=== PATIENT | female | born 1945 | race Caucasian/White ===

== ENCOUNTER 2018-01-20 18:05 | Inpatient (IN) | payer MEDICARE ==
[~2018-01-20] VITALS: Ht 167.6 cm; Wt 73.0 kg
[2018-01-20 18:49] LABS: BASOPHILS % (AUTO) 0.1 % (0-1); EOSINOPHILS # (AUTO) 0.1 X10'3 (0-0.9); EOSINOPHILS % (AUTO) 1.8 % (0-6); HEMATOCRIT 35.7 % (35.0-45.0); LYMPHOCYTES # (AUTO) 2.3 X10'3 (1.1-4.8); LYMPHOCYTES % (AUTO) 30.3 % (21-51); MEAN CORPUSCULAR HEMOGLOBIN 29.9 PG (27.0-31.0); MEAN CORPUSCULAR HGB CONC 33.6 % (33.0-36.5); MEAN PLATELET VOLUME 7.8 FL (7.4-10.4); MONOCYTES # (AUTO) 0.4 X10'3 (0-0.9); MONOCYTES % (AUTO) 5.8 % (2-12); NEUTROPHILS # (AUTO) 4.7 X10'3 (1.8-7.7); PLATELET COUNT 154 X10'3 (140-440); RED BLOOD COUNT 4.01 X10'6 (4.20-5.60); RED CELL DISTRIBUTION WIDTH 13.8 % (11.5-14.5); WHITE BLOOD COUNT 7.6 X10'3 (4.5-11.0)
[2018-01-20 18:58] LABS: PARTIAL THROMBOPLASTIN TIME 32 SECONDS (22-32); PROTHROMBIN TIME 10.8 SECONDS (9.0-12.0)
[2018-01-20 19:04] LABS: ALANINE AMINOTRANSFERASE 28 U/L (12-78); ALBUMIN 3.6 G/DL (3.4-5.0); ALBUMIN/GLOBULIN RATIO 1.1 (1.1-1.5); ALKALINE PHOSPHATASE 56 IU/L (46-116); ANION GAP 9 (8-16); ASPARTATE AMINO TRANSFERASE 18 U/L (10-37); BILIRUBIN,TOTAL 0.5 MG/DL (0.1-1.0); BLOOD UREA NITROGEN 13 MG/DL (7-18); CALCIUM 8.4 MG/DL (8.5-10.1); CHLORIDE 105 MMOL/L (99-107); CREATININE 0.93 MG/DL (0.40-0.90); GLUCOSE 101 MG/DL (70-104); SODIUM 140 MMOL/L (135-145); TOTAL CARBON DIOXIDE 26.5 MMOL/L (24-32); eGFR 59 ML/MIN
[2018-01-20] MEDS ORDERED: HYDR-3965 PO (19:29)
[2018-01-20] MEDS ORDERED: IBUP200C5 PO (19:29)
[2018-01-20] MEDS ORDERED: ondansetron/PF 4mg/2ml inj IV PRN (21:20)
[2018-01-20] MEDS ORDERED: HYDROcodone/acetaminophen 10/325mg tab PO PRN (21:20)
[2018-01-20] MEDS ORDERED: HYDROcodone/acetaminophen 5mg/325mg tablet PO PRN (21:20)
[2018-01-20] MEDS ORDERED: acetaminophen 325mg tablet PO PRN ×2 (21:20)
[2018-01-20] MEDS ORDERED: magnesium hydroxide 30ml (MOM) UD suspension PO PRN (21:20)
[2018-01-20] MEDS ORDERED: enoxaparin 100mg/ml syringe SUBCUT ONE (21:20)
[2018-01-20] MEDS ORDERED: mag hydrox/Alum hydrox/simeth 30ml oral suspension PO PRN (21:20)
[2018-01-21 02:11] VITALS: BP 139/72
[2018-01-21 05:22] LABS: BASOPHILS % (AUTO) 0.6 % (0-1); EOSINOPHILS # (AUTO) 0.2 X10'3 (0-0.9); EOSINOPHILS % (AUTO) 2.3 % (0-6); HEMOGLOBIN 12.3 g/dl (12.0-16.0); LYMPHOCYTES # (AUTO) 2.9 X10'3 (1.1-4.8); LYMPHOCYTES % (AUTO) 43.7 % (21-51); MEAN CORPUSCULAR HEMOGLOBIN 29.8 PG (27.0-31.0); MEAN CORPUSCULAR HGB CONC 33.3 % (33.0-36.5); MEAN CORPUSCULAR VOLUME 89.4 FL (78-98); MEAN PLATELET VOLUME 8.4 FL (7.4-10.4); MONOCYTES # (AUTO) 0.5 X10'3 (0-0.9); MONOCYTES % (AUTO) 7.4 % (2-12); NEUTROPHILS # (AUTO) 3.1 X10'3 (1.8-7.7); PLATELET COUNT 133 X10'3 (140-440); RED BLOOD COUNT 4.13 X10'6 (4.20-5.60); RED CELL DISTRIBUTION WIDTH 13.8 % (11.5-14.5); WHITE BLOOD COUNT 6.7 X10'3 (4.5-11.0)
[2018-01-21 05:39] LABS: ALBUMIN 3.6 G/DL (3.4-5.0); ANION GAP 7 (8-16); BLOOD UREA NITROGEN 12 MG/DL (7-18); BUN/CREATININE RATIO 12.8 (6.6-38.0); CALCIUM 8.6 MG/DL (8.5-10.1); CHLORIDE 106 MMOL/L (99-107); CREATININE 0.94 MG/DL (0.40-0.90); GLUCOSE 91 MG/DL (70-104); POTASSIUM 3.7 MMOL/L (3.5-5.1); SODIUM 140 MMOL/L (135-145); TOTAL CARBON DIOXIDE 26.9 MMOL/L (24-32); eGFR 59 ML/MIN
[2018-01-21 06:00] VITALS: BP 129/63
[2018-01-21] MEDS: enoxaparin 30mg/0.3ml syringe SUBCUT SCH ×2 (07:46→19:43)
[2018-01-21] MEDS: enoxaparin 40mg/0.4ml syringe SUBCUT SCH ×2 (07:46→19:42)
[2018-01-21 11:00] VITALS: BP 105/52
[2018-01-21 15:00] VITALS: BP 107/61
[2018-01-21 19:00] VITALS: BP 123/56
[2018-01-21] MEDS: diatr meglu/diatrizoate 30ml oral sol.-(3 dose) bottle PO SCH (21:04)
[2018-01-21 23:00] VITALS: BP 142/95
[2018-01-22 03:00] VITALS: BP 102/42
[2018-01-22 05:29] LABS: BASOPHILS % (AUTO) 0.5 % (0-1); EOSINOPHILS # (AUTO) 0.2 X10'3 (0-0.9); EOSINOPHILS % (AUTO) 3.7 % (0-6); HEMATOCRIT 36.2 % (35.0-45.0); HEMOGLOBIN 12.1 g/dl (12.0-16.0); LYMPHOCYTES # (AUTO) 2.9 X10'3 (1.1-4.8); LYMPHOCYTES % (AUTO) 45.1 % (21-51); MEAN CORPUSCULAR HEMOGLOBIN 29.9 PG (27.0-31.0); MEAN CORPUSCULAR HGB CONC 33.6 % (33.0-36.5); MEAN PLATELET VOLUME 8.6 FL (7.4-10.4); MONOCYTES # (AUTO) 0.5 X10'3 (0-0.9); MONOCYTES % (AUTO) 8.3 % (2-12); NEUTROPHILS # (AUTO) 2.8 X10'3 (1.8-7.7); NEUTROPHILS % (AUTO) 42.4 % (42-75); PLATELET COUNT 141 X10'3 (140-440); RED BLOOD COUNT 4.07 X10'6 (4.20-5.60); RED CELL DISTRIBUTION WIDTH 13.6 % (11.5-14.5); WHITE BLOOD COUNT 6.5 X10'3 (4.5-11.0)
[2018-01-22 05:41] LABS: ALBUMIN 3.3 G/DL (3.4-5.0); ANION GAP 6 (8-16); BLOOD UREA NITROGEN 17 MG/DL (7-18); BUN/CREATININE RATIO 16.2 (6.6-38.0); CHLORIDE 105 MMOL/L (99-107); CREATININE 1.05 MG/DL (0.40-0.90); GLUCOSE 97 MG/DL (70-104); POTASSIUM 4.2 MMOL/L (3.5-5.1); SODIUM 141 MMOL/L (135-145); eGFR 52 ML/MIN
[2018-01-22 06:00] VITALS: BP 90/37
[2018-01-22] MEDS: diatr meglu/diatrizoate 30ml oral sol.-(3 dose) bottle PO SCH ×2 (07:05→09:37)
[2018-01-22] MEDS: enoxaparin 30mg/0.3ml syringe SUBCUT SCH ×2 (07:07→19:44)
[2018-01-22] MEDS: enoxaparin 40mg/0.4ml syringe SUBCUT SCH ×2 (07:08→19:44)
[2018-01-22] MEDS ORDERED: iohexol 300mg/ml 100ml inj. ONE (09:52)
[2018-01-22] MEDS ORDERED: iohexol 350MG/ML 100ml bottle IV ONE (09:53)
[2018-01-22] MEDS: Potassium Cl inj 20 MEQ in normal saline 1000ml 990 ML IV SCH ×3 (10:45→22:59)
[2018-01-22 11:00] VITALS: BP 134/79
[2018-01-22 15:00] VITALS: BP 112/59
[2018-01-22 19:00] VITALS: BP 107/44
[2018-01-22 23:00] VITALS: BP 151/61
[2018-01-23 03:00] VITALS: BP 124/58
[2018-01-23 05:53] LABS: ALBUMIN 3.1 G/DL (3.4-5.0); ANION GAP 7 (8-16); BLOOD UREA NITROGEN 13 MG/DL (7-18); BUN/CREATININE RATIO 15.3 (6.6-38.0); CALCIUM 8.4 MG/DL (8.5-10.1); CHLORIDE 107 MMOL/L (99-107); CREATININE 0.85 MG/DL (0.40-0.90); GLUCOSE 101 MG/DL (70-104); POTASSIUM 4.3 MMOL/L (3.5-5.1); SODIUM 139 MMOL/L (135-145); TOTAL CARBON DIOXIDE 25.4 MMOL/L (24-32); eGFR 66 ML/MIN
[2018-01-23 07:20] VITALS: BP 113/46
[2018-01-23] MEDS: enoxaparin 30mg/0.3ml syringe SUBCUT SCH (08:24)
[2018-01-23] MEDS: enoxaparin 40mg/0.4ml syringe SUBCUT SCH (08:25)
[2018-01-23] MEDS ORDERED: ENOX30DI4 SQ (09:46)
[2018-01-23] MEDS ORDERED: APIX5TAB3 PO (09:46)
[2018-01-23] MEDS ORDERED: ENOX40DI8 SQ (09:46)
[2018-01-23 11:00] VITALS: BP 166/52
[2018-01-24 05:25] LABS: ANTITHROMBIN ACTIVITY 97 % (75-135); ANTITHROMBIN ANTIGEN 86 % (72-124); PROTEIN S, FREE 88 % (57-157); PROTEIN S, TOTAL 89 % (60-150)
== END 2018-01-23 13:50 | disposition home or self-care (01) | DRG 176 ==
LOC: ER 18:06 → ED HOLD 21:16 → PCU 3S 01-21 01:10
PROVIDERS: ADMIT Hospitalist; ATTEND Internal Medicine
PROC: BW211ZZ Computerized Tomography (CT Scan) of Abdomen and Pelvis using Low Osmolar Contrast (ICD-10-PCS; principal; 2018-01-22)
DX: I26.99 Other pulmonary embolism without acute cor pulmonale (principal); G89.4 Chronic pain syndrome; K42.9 Umbilical hernia without obstruction or gangrene; K57.30 Diverticulosis of large intestine without perforation or abscess without bleeding; M54.9 Dorsalgia, unspecified; K76.89 Other specified diseases of liver; Z98.51 Tubal ligation status; Z79.899 Other long term (current) drug therapy; Z87.891 Personal history of nicotine dependence
CPT/HCPCS: 36415; 71045; 74177; 80048; 80053; 81479; 83891; 83894; 83898; 84484; 85025; 85240; 85300; 85301; 85303; 85305; 85306; 85610; 85730; 86146; 86147; 87070; 93005; 93306; 93970; 99285; J1650; J3480; J7030; Q9963; Q9967

== ENCOUNTER 2018-02-19 09:45 | Emergency (ER) | payer MEDICARE ==
[~2018-02-19] VITALS: Ht 170.2 cm; Wt 75.0 kg
[~2018-02-19 09:45] MED LIST: APIX5TAB3 PO; ENOX30DI4 SQ; ENOX40DI8 SQ; HYDR-3965 PO
[2018-02-19] MEDS ORDERED: triamcinolone acetonide 40mg/ml inj IM ONE (11:05)
[2018-02-19] MEDS ORDERED: TRAM50TA2 PO (11:14)
[2018-02-19 11:26] VITALS: BP 131/67
== END 2018-02-19 11:27 | disposition home or self-care (01) ==
LOC: EDBD → ER 09:45
DX: G89.29 Other chronic pain (principal); M54.5 Low back pain; R20.0 Anesthesia of skin
CPT/HCPCS: 96372; 99283; J3301